=== PATIENT | female | born 1955 | race Caucasian/White ===

== ENCOUNTER 2018-07-12 09:27 | Day surgery (SDC) | payer OTHER ==
[~2018-07-12 09:27] MED LIST: Ak-Dilate OPHTHALMIC*** 1.065 ML, Cyclogyl 1% OPHTH SOL 5 ML 1.065 ML, GATIFLOXACIN 0.5... OP ONE; Lactated Ringers 1,000 ML IV ONE; Lactated Ringers 1,000 ML IV SCH; TETRACAINE 0.5% STERI-UNIT SOL OP ONE
[2018-07-12] MEDS ORDERED: INDIGO CARMINE IJ ONE (09:28)
[2018-07-12] MEDS ORDERED: Versed 2 MG/2 ML Injection IV ONE (09:28)
[2018-07-12] MEDS ORDERED: DIPRIVAN 200 MG/20 ML IV ONE (09:28)
[2018-07-12] MEDS ORDERED: Visionblue IO ONE (11:30)
[2018-07-12] MEDS ORDERED: LIDOCAINE HCL 1% AMPUL 5 ML IJ ONE (11:30)
[2018-07-12] MEDS ORDERED: BETADINE 5% OPHTHALMIC 30 ML OP ONE (11:30)
[2018-07-12] MEDS ORDERED: Epinephrine Preservative Free 1 MG/ML INTRAOP ONE (11:30)
[2018-07-12] MEDS ORDERED: ACETAZOLAMIDE 250 MG TABLET PO ONE (11:30)
[2018-07-12] MEDS ORDERED: Zofran 4 MG/2 ML VIAL IV PRN (11:30)
[2018-07-12] MEDS ORDERED: BSS 500 ML, Fortaz/Tazicef 1 GM** 0.2 G IO ONE ×2 (11:30)
[2018-07-12 12:19] VITALS: BP 171/85; PULSE 47; O2SAT 100
--- NOTE | 2018-07-12 14:44 | OP ---
DATE/TIME OF OPERATION: 07/12/2018 1056 TIME DICTATED: 1208 PREOPERATIVE DIAGNOSIS: Senile cataract of left eye. POSTOPERATIVE DIAGNOSIS: Senile cataract of left eye. SURGEON: Afsaneh Rosario MD CLAIM TRAINEE: None. OPERATION: Cataract extraction of left eye with an intraocular lens implant. STANDARD COMPLEX ___X___ ANESTHESIA: MAC. ___X___ Monitored anesthesia care in combination with topical and intra-cameral anesthesia (because of the established specific risk of reflux, arrhythmias, or an anxiety attack associated with ocular manipulation as well as difficulty of the nuclear control room operator to manage such potentially catastrophic events while simultaneously attempting to complete the surgical procedure, it was deemed necessary for the patient's safety to have an anesthesiologist or a nurse demo coordinator present during the procedure whenever possible. The anesthesiologist or the nurse demo coordinator was utilized to monitor and regulate the intravenous sedation of the patient, so the patient was cooperative, relaxed, and comfortable). Topical anesthesia using Tetracaine eye drops together with intra cameral anesthesia using Lidocaine 1% MPF. The nurse was utilized to monitor the patient. ANESTHESIA PROVIDER: Sanya Inman CRNA. COMPLICATIONS: None. BLOOD LOSS: None. INDICATIONS: The patient is undergoing cataract surgery in the hopes of eliminating the visual complaints and difficulty. PROCEDURE: After arriving at the facility's outpatient surgery area, an IV was started; the patient was given 5 mg of p.o. Versed. (If an anesthesia provider was not monitoring the patient) The patient was then given topical anesthetic Tetracaine eye drops. A cotton pellet was soaked into a solution of a combination of Zymaxid 0.5%, Da-Synephrine 2.5% and Ocufen (other drops might have been substituted referenced in the patient's record). The pellet was inserted by the RN into the lower conjunctival cul-de-sac with a sterile forceps and left for 20 minutes. The pellet was then removed by the RN with a sterile forceps before taking the patient to the operating room. The preoperative area nurse identified the patient and marked the correct eye to be operated on. I identified the correct eye to be operated on and marked it appropriately in the outpatient surgery area. The patient was then taken into the operating room. Tetracaine eye drops were installed again in the correct eye. The eyelids and the lashes and the lid margins were scrubbed with Betadine solution. One drop of the diluted Betadine solution was placed in the conjunctival cul-de-sac for 45 seconds and then was irrigated. A drop of Tetracaine Gel was placed in the conjunctival cul-de-sac. The patient's forehead was taped to secure it during the procedure. The patient was monitored. The patient was then draped in the usual way for this procedure. An eye speculum was used to separate the eyelids. The eye was then fixated and a temporal 2.5 mm incision was made in the clear cornea temporally at the limbus. Through the incision, 0.25 cc of 1% non-preserved lidocaine was injected into the anterior chamber for intracameral anesthesia. The anterior chamber was then filled with viscoelastic. The pupil was small. I felt that it would be safer to mechanically dilate the pupil. A Malyugin ring was used at this point which dilated the pupil. That was removed at the end of the procedure prior to aspiration of the viscoelastic from the anterior chamber and posterior to the intraocular lens implant. ___X__ The cataract had a great amount of cortical changes. That rendered seeing the anterior capsule difficult for a safe performance of an anterior capsulotomy. I injected an air bubble into the anterior chamber. I then injected 1 ML of vision blue solution into the anterior chamber. The vision blue solution was irrigated from the anterior chamber after 30 seconds. The anterior capsule was stained which facilitated performing the anterior capsulotomy safely. After that was completed, a cystotome was introduced into the anterior chamber and a round anterior capsulotomy was performed. The capsule was removed by a forceps. Hydrodissection was next carried utilizing a 25-gauge cannula and balanced salt solution to delineate the cortical material from the capsule and the nucleus from the cortical material. The nucleus was rotated freely into the capsular bag with no difficulty. The phaco tip of the [facility] Phacoemulsifier was introduced into the anterior chamber and two grooves were made into the nucleus 90 degrees apart. Using two spatulas resulted into the nucleus being fractured into four quadrants. The phaco tip was then used to remove each quadrant of the nucleus. Viscoelastic was used during this process to protect the corneal endothelium. Once the entire nucleus was removed, the phaco tip then was removed and the irrigation tip was introduced into the eye and the cortex was removed. The posterior capsule was polished. It was noticed that there was a tear into the posterior capsule with few vitreous strands into the pupil plan. An anterior vitrectomy was performed. A 18.00 diopter, [id number], posterior chamber lens implant, was inspected and found to be grossly normal. The implant was inserted into the implant injector cartridge; Viscoelastic again was introduced into the anterior chamber, which filled the capsular bag. The implant injector's cartridge tip was placed at the limbal wound and the posterior chamber implant was released into the capsular bag and rotated appropriately. The implant was found to be into the capsular bag and it was centered. __X___ 0.2 ml of Tri-Moxi was introduced via 27 gauge cannula into the vitreous cavity through the ciliary processes. Viscoelastic was aspirated from the anterior chamber and posterior to the intraocular lens implant from the capsular bag using the irrigating tip. The anterior chamber was irrigated and filled with 5 cc antibiotic solution (500 cc of BSS plus 2 ml of Fortaz 100 mg/ml) ( if patient was not allergic to the medication). The lips of the corneal incision were hydrated using BSS solution. The anterior chamber was checked and found to be water tight. One drop each of antibiotic, steroid and NSAID drops (refer to chart for drops used) were placed in the conjunctival cul-de-sac of the operated eye. Patient tolerated the procedure quite well and left the operating room in satisfactory condition. DISCHARGE SUMMARY: The patient was released in stable condition. The patient and those with the patient were given an instruction sheet as of how to care for the eye after surgery as well as counseling on any abnormal laboratory studies by the postoperative RN. The patient was also given an appointment card for follow-up in the office and is to call immediately for any difficulties including but not limited to pain in the eye, decreased vision, discharge from the eye, headache and or fever. DISCHARGE DIAGNOSIS: Pseudophakia of left eye.
== END 2018-07-12 12:27 | disposition home or self-care (01) ==
LOC: SDC 09:27
PROVIDERS: ATTEND Ophthalmology
DX: H25.9 Unspecified age-related cataract (principal)
CPT/HCPCS: 66982; 94250; C1780; J0171; J2250; J2704; A9270-GY

== ENCOUNTER 2022-02-10 08:27 | Day surgery (SDC) | payer MEDICARE ==
[~2022-02-10 08:27] MED LIST changes: +ACETAZOLAMIDE 250 MG TABLET PO ONE; +Ak-Dilate OPHTHALMIC*** 1.065 ML, Cyclogyl 1% OPHTH SOL 1.065 ML, GATIFLOXACIN 0.5% OPH... OP ONE; -Ak-Dilate OPHTHALMIC*** 1.065 ML, Cyclogyl 1% OPHTH SOL 5 ML 1.065 ML, GATIFLOXACIN 0.5... OP ONE; +BETADINE 5% OPHTHALMIC 30 ML OP ONE; -Lactated Ringers 1,000 ML IV ONE; +NON-FORMULARY ITEM IJ ONE; +Zofran 4 MG/2 ML VIAL IV PRN; +cefUROXime sodium 0.005 GM in Sodium Chloride Flush 30 ML*** 0.5 ML IJ ONE
[2022-02-10] MEDS ORDERED: LIDOCAINE HCL 1% 50 MG/5 ML VL PF IJ ONE (08:28)
[2022-02-10] MEDS ORDERED: Epinephrine Preservative Free 1 MG/ML IJ ONE (08:28)
[2022-02-10] MEDS ORDERED: Lactated Ringers 1,000 ML IV SCH (08:30)
[2022-02-10] MEDS ORDERED: BETADINE 5% OPHTHALMIC 30 ML OP ONE (08:30)
[2022-02-10] MEDS ORDERED: Ak-Dilate OPHTHALMIC*** 1.065 ML, Cyclogyl 1% OPHTH SOL 1.065 ML, GATIFLOXACIN 0.5% OPH... OP ONE ×4 (08:30)
[2022-02-10] MEDS ORDERED: NON-FORMULARY ITEM IJ ONE (08:30)
[2022-02-10] MEDS ORDERED: cefUROXime sodium 0.005 GM in Sodium Chloride Flush 30 ML*** 0.5 ML IJ ONE (08:30)
[2022-02-10] MEDS ORDERED: TETRACAINE 0.5% STERI-UNIT SOL OP ONE ×2 (08:30)
[2022-02-10] MEDS ORDERED: Lactated Ringers 1,000 ML IV ONE (09:05)
[2022-02-10] MEDS ORDERED: DIPRIVAN 200 MG/20 ML IV ONE ×2 (10:16→10:28)
[2022-02-10] MEDS ORDERED: SUBLIMAZE 100 MCG/2 ML ONE (10:30)
[2022-02-10] MEDS ORDERED: ACETAZOLAMIDE 250 MG TABLET PO ONE (10:30)
[2022-02-10] MEDS ORDERED: Zofran 4 MG/2 ML VIAL IV PRN (10:30)
[2022-02-10 11:06] VITALS: O2SAT 100
[2022-02-10 11:15] VITALS: BP 136/62; PULSE 52
== END 2022-02-10 11:17 | disposition home or self-care (01) ==
LOC: SDC 08:27
PROVIDERS: ATTEND Ophthalmology
DX: H25.811 Combined forms of age-related cataract, right eye (principal)
CPT/HCPCS: C1780; J0171; J2001; J2704; J3010; A9270-GY

== ENCOUNTER 2024-02-23 10:31 | Emergency (ER) | payer MEDICARE ==
--- NOTE | 2024-02-23 10:32 | ERPHSYRPT ---
- History of Present Illness Time Seen by Provider: 02/23/24 10:32 Source: patient, family Exam Limitations: no limitations Physician History: This is a 68-year-old white female patient of nurse practitioner Ivette who was seen at the urgent care facility this morning. This patient have the complaint of "just not feeling well over the last 2 to 3 weeks". Patient had a COVID and flu test today that was negative. She also underwent a twelve-lead EKG which did not show any acute ischemic findings. Patient states that she feels weak. She does have some discomfort between her scapulae. She has no abdominal pain. She has no specific chest pain. She does have generalized achiness. There is been no recent change in her medications. Although 4 weeks ago she stopped taking a medicine for her arthritis that she was prescribed. Patient was diagnosed with shingles 3 weeks ago. Patient denies chest pain and she denies shortness of breath. Patient has a history of hypothyroidism, anxiety, depression and rheumatoid arthritis. She has a history of DVT and pulmonary embolus in the past and reviewing old records. In reviewing her medication list I do not see anticoagulation medication. Patient has never been diagnosed with coronary artery disease. Timing/Duration: week(s) Severity: mild (2 to 3 weeks to moderate) Associated Symptoms: denies symptoms, malaise, weakness Allergies/Adverse Reactions: No Known Drug Allergies Allergy (Verified 02/23/24 10:46) Home Medications: Levothyroxine Sodium 125 mcg PO DAILY 09/20/13 [History] Sertraline HCl [Zoloft] 50 mg PO DAILY 07/06/18 [History] Leflunomide [Arava] 10 mg PO DAILY 07/07/18 [History] Acetaminophen [Tylenol] 650 mg PO DAILY PRN PRN 01/05/22 [History] Vit D3-Vit K/Berberine/Hops [Ostera Tablet] 1 each PO DAILY 02/04/22 [History] Hx Tetanus, Diphtheria Vaccination/Date Given: No Hx Influenza Vaccination/Date Given: Yes (June 2013) Hx Pneumococcal Vaccination/Date Given: No Travel Risk - International Travel Have you traveled outside of the country in past 3 weeks: No - Emerging Infectious Disease Are you exhibiting symptoms associated with any current EIDs: No - Review of Systems Constitutional: Malaise, Weakness Eyes: No Symptoms Ears, Nose, & Throat: No Symptoms Respiratory: No Symptoms Cardiac: No Symptoms Abdominal/Gastrointestinal: No Symptoms Genitourinary Symptoms: No Symptoms Musculoskeletal: No Symptoms Skin: No Symptoms Neurological: No Symptoms Psychological: No Symptoms Endocrine: No Symptoms Hematologic/Lymphatic: No Symptoms Immunological/Allergic: No Symptoms All Other Systems: Reviewed and Negative - Past Medical History Pertinent Past Medical History: Yes Neurological History: No Pertinent History ENT History: No Pertinent History Cardiac History: Deep Vein Thrombosis Respiratory History: No Pertinent History, Pulmonary Embolism Endocrine Medical History: Hypothyroidism Musculoskeletal History: Rheumatoid Arthritis GI Medical History: No Pertinent History History: No Pertinent History, Other Psycho-Social History: Anxiety, Depression Female Reproductive Disorders: No Pertinent History Other Medical History: kidney stones, blood clot in lung, pessory in place to hold uterus hx of uti - Past Surgical History Past Surgical History: Yes Neuro Surgical History: No Pertinent History Cardiac: No Pertinent History Respiratory: No Pertinent History Gastrointestinal: Cholecystectomy Genitourinary: No Pertinent History Musculoskeletal: No Pertinent History Female Surgical History: Tubal Ligation Other Surgical History: lithotripsy - Social History Smoking Status: Never smoker Exposure to second hand smoke: No Drug Use: none Patient Lives Alone: No - Nursing Vital Signs Nursing Vital Signs: Initial Vital Signs Temperature 97.2 F 02/23/24 10:48 Pulse Rate 89 02/23/24 10:48 Respiratory Rate 18 02/23/24 10:48 Blood Pressure 185/111 02/23/24 10:48 O2 Sat by Pulse Oximetry 97 02/23/24 10:48 Pain Scale Pain Intensity 0 - Physical Exam General Appearance: no apparent distress, alert, anxiety, obese Eye Exam: PERRL/EOMI, eyes nml inspection Ears, Nose, Throat Exam: normal ENT inspection, moist mucous membranes Neck Exam: normal inspection, non-tender, supple, full range of motion Respiratory Exam: normal breath sounds, lungs clear, airway intact, No chest tenderness, No respiratory distress Cardiovascular Exam: regular rate/rhythm, normal heart sounds, normal peripheral pulses Gastrointestinal/Abdomen Exam: soft, normal bowel sounds, No tenderness Pelvic Exam: not done Rectal Exam: not done Back Exam: normal inspection, normal range of motion, No CVA tenderness, No vertebral tenderness Extremity Exam: normal inspection, normal range of motion, pelvis stable Neurologic Exam: alert, oriented x 3, cooperative, developmental behavioral physician II-XII nml as tested, nml cerebellar function, nml station & gait, sensation nml, depressed mood/affect Skin Exam: normal color, warm, dry Lymphatic Exam: No adenopathy SpO2 Interpretation: normal O2 Delivery: Room Air - Course Nursing assessment & vital signs reviewed: Yes EKG Interpreted by Me: RATE (87), Sinus Rhythm, NORMAL AXIS, NORMAL INTERVALS, NORMAL QRS, Other (No acute ischemic changes on today's twelve-lead EKG. There is no comparison twelve-lead EKG available.) Ordered Tests: Active Orders 24 hr Category Date Time Status Property Damage Claims Adjustor STAT Care 02/23/24 11:11 Active IV Insertion STAT Care 02/23/24 11:10 Active Pulse Oximetry (ED) STAT Care 02/23/24 11:10 Active CHEST 1 VIEW (PORTABLE) Stat Exams 02/23/24 11:10 Completed CHEST WITH CONTRAST [CT] Stat Exams 02/23/24 12:21 Completed BLOOD CULTURE Stat Lab 02/23/24 12:15 Received CBC W DIFF Stat Lab 02/23/24 11:20 Completed CMP Stat Lab 02/23/24 11:20 Completed CULTURE,URINE Stat Lab 02/23/24 12:05 Received D-DIMER QUANTITATIVE Stat Lab 02/23/24 11:20 Completed MAGNESIUM Stat Lab 02/23/24 11:20 Completed NT PRO BNPII Stat Lab 02/23/24 11:20 Completed TROPONIN Q4H Lab 02/23/24 15:15 Ordered TROPONIN Q4H Lab 02/23/24 19:15 Ordered TSH, 3RD Generation Stat Lab 02/23/24 11:20 Completed UA W/RFX UR CULTURE Stat Lab 02/23/24 12:05 Completed Medication Summary Discontinued Medications Generic Name Dose Route Start Last Admin Trade Name Niecy PRN Reason Stop Dose Admin Sodium Chloride 1,000 mls @ 999 mls/hr 02/23/24 11:10 02/23/24 12:16 Sodium Chloride 0.9% 1000 Ml IV 02/23/24 12:10 999 mls/hr .Q1H1M STA Administration Sodium Chloride Confirm 02/23/24 11:28 Sodium Chloride 0.9% 1000 Ml Administered 02/23/24 11:29 Dose 1,000 mls @ ud .ROUTE .STK-MED ONE Ceftriaxone Sodium 1 gm in 100 mls @ 200 mls/hr 02/23/24 12:34 02/23/24 12:53 Rocephin 1 Gm / 100 Ml Nacl IV 02/23/24 13:03 200 ml/hr STAT ONE 200 mls/hr Administration Ceftriaxone Sodium Confirm 02/23/24 12:49 Rocephin 1 Gm / 100 Ml Nacl Administered 02/23/24 12:50 Dose 1 gm in 100 mls @ ud IV .STK-MED ONE Labetalol HCl 10 mg 02/23/24 11:37 02/23/24 12:18 Labetalol Hcl 20 Mg/4 Ml Disp.Syringe IV 02/23/24 11:38 10 mg STAT ONE Administration Labetalol HCl Confirm 02/23/24 12:10 Labetalol Hcl 20 Mg/4 Ml Disp.Syringe Administered 02/23/24 12:11 Dose 20 mg IV .STK-MED ONE Labetalol HCl 10 mg 02/23/24 13:24 02/23/24 13:47 Labetalol Hcl 20 Mg/4 Ml Disp.Syringe IV 02/23/24 13:25 10 mg STAT ONE Administration Labetalol HCl Confirm 02/23/24 13:35 Labetalol Hcl 20 Mg/4 Ml Disp.Syringe Administered 02/23/24 13:36 Dose 20 mg IV .STK-MED ONE Potassium Chloride 20 meq 02/23/24 13:50 02/23/24 13:54 Potassium Chloride Tab 10 Meq Tab PO 02/23/24 13:51 20 meq STAT ONE Administration Potassium Chloride Confirm 02/23/24 13:53 Potassium Chloride Tab 10 Meq Tab Administered 02/23/24 13:54 Dose 20 meq .ROUTE .STK-MED ONE Lab/Rad Data: Laboratory Result Diagrams 02/23/24 11:20 02/23/24 11:20 Laboratory Results 02/23/24 02/23/24 02/23/24 Range/Units 12:05 11:20 11:20 WBC (3.98-10.04) x10^3/uL RBC (3.93-5.22) x10^6/uL Hgb (11.2-15.7) g/dL Hct (34.1-44.9) % MCV (79.4-94.8) fL MCH (25.6-32.2) pg MCHC (32.2-35.5) g/dL RDW (11.7-14.4) % Plt Count (182-369) x10^3/uL MPV (9.4-12.3) fL Gran % (34.0-71.1) % Immature Gran % (Auto) (0.001-0.429) % Nucleat RBC Rel Count (0.00-0.2) % Eos # (Auto) (0.04-0.36) x10^3/uL Immature Gran # (Auto) (0.001-0.031) x10^3u/L Absolute Lymphs (auto) (1.18-3.74) x10^3/uL Absolute Monos (auto) (0.24-0.86) x10^3/uL Absolute Nucleated RBC (0.00-0.012) x10^3u/L Lymphocytes % (19.3-51.7) % Monocytes % (4.7-12.5) % Eosinophils % (0.7-5.8) % Basophils % (0.1-1.2) % Absolute Granulocytes (1.56-6.13) x10^3/uL Basophils # (0.01-0.08) x10^3/uL D-Dimer 0.69 H* (0.0-0.50) mg/L Sodium (135-145) mmol/L Sodium Direct 139 (138-146) mmol/L Potassium 3.3 L (3.5-5.1) mmol/L Chloride 100 (98-107) mmol/L Carbon Dioxide 29 (22-30) mmol/L Anion Gap (5-15) MEQ/L BUN (7-17) mg/dL Venous BUN 5 L (8-26) mg/dL Creatinine 0.7 (0.52-1.04) mg/dL Estimated GFR ML/MIN Glucose 98 (74-106) mg/dL Calcium (8.4-10.2) mg/dL Ionized Calcium 0.88 L (1.12-1.32) mmol/L Magnesium (1.6-2.3) mg/dL Total Bilirubin (0.2-1.3) mg/dL AST (14-36) U/L ALT (0-35) U/L Alkaline Phosphatase (38-126) U/L Troponin 0.01 (0.00-0.03) ng/mL NT-Pro-B Natriuret Pep (<300) pg/mL Serum Total Protein (6.3-8.2) g/dL Albumin (3.5-5.0) g/dL TSH 3rd Generation (0.470-4.680) mIU/L Urine Color Yellow (Yellow) Urine Appearance Clear (Clear) Urine pH 6.5 (4.6-8.0) Ur Specific Custer 1.015 (1.005-1.030) Urine Protein Trace A (Negative) Urine Glucose (UA) Negative (Negative) mg/dL Urine Ketones 40 A (Negative) Urine Blood Negative (Negative) Urine Nitrite Negative (Negative) Urine Bilirubin Negative (Negative) Urine Urobilinogen 1.0 A (0.2) mg/dL Ur Leukocyte Esterase Large A (Negative) U Hyaline Cast (Auto) NONE SEEN (0-2) /LPF Urine Microscopic RBC 0-2 (0-5) /HPF Urine Microscopic WBC 21-50 A (0-5) /HPF Ur Epithelial Cells Few (None Seen) /HPF Urine Bacteria Few A (None Seen) /HPF Urine Culture Reflexed YES (NO) 02/23/24 02/23/24 Range/Units 11:20 11:20 WBC 3.3 L (3.98-10.04) x10^3/uL RBC 4.40 (3.93-5.22) x10^6/uL Hgb 13.0 (11.2-15.7) g/dL Hct 39.1 (34.1-44.9) % MCV 88.9 (79.4-94.8) fL MCH 29.5 (25.6-32.2) pg MCHC 33.2 (32.2-35.5) g/dL RDW 13.9 (11.7-14.4) % Plt Count 219 (182-369) x10^3/uL MPV 10.9 (9.4-12.3) fL Gran % 70.9 (34.0-71.1) % Immature Gran % (Auto) 0.3 (0.001-0.429) % Nucleat RBC Rel Count 0.0 (0.00-0.2) % Eos # (Auto) 0.02 L (0.04-0.36) x10^3/uL Immature Gran # (Auto) 0.01 (0.001-0.031) x10^3u/L Absolute Lymphs (auto) 0.60 L (1.18-3.74) x10^3/uL Absolute Monos (auto) 0.28 (0.24-0.86) x10^3/uL Absolute Nucleated RBC 0.00 (0.00-0.012) x10^3u/L Lymphocytes % 18.4 L (19.3-51.7) % Monocytes % 8.6 (4.7-12.5) % Eosinophils % 0.6 L (0.7-5.8) % Basophils % 1.2 (0.1-1.2) % Absolute Granulocytes 2.31 (1.56-6.13) x10^3/uL Basophils # 0.04 (0.01-0.08) x10^3/uL D-Dimer (0.0-0.50) mg/L Sodium 140 (135-145) mmol/L Sodium Direct (138-146) mmol/L Potassium 3.3 L (3.5-5.1) mmol/L Chloride 103 (98-107) mmol/L Carbon Dioxide 30 (22-30) mmol/L Anion Gap 10.2 (5-15) MEQ/L BUN 7 (7-17) mg/dL Venous BUN (8-26) mg/dL Creatinine 0.63 (0.52-1.04) mg/dL Estimated GFR 95.4 ML/MIN Glucose 102 (74-106) mg/dL Calcium 8.9 (8.4-10.2) mg/dL Ionized Calcium (1.12-1.32) mmol/L Magnesium 1.8 (1.6-2.3) mg/dL Total Bilirubin 0.60 (0.2-1.3) mg/dL AST 25 (14-36) U/L ALT 13 (0-35) U/L Alkaline Phosphatase 89 (38-126) U/L Troponin (0.00-0.03) ng/mL NT-Pro-B Natriuret Pep 342 (<300) pg/mL Serum Total Protein 7.0 (6.3-8.2) g/dL Albumin 3.7 (3.5-5.0) g/dL TSH 3rd Generation 0.334 L (0.470-4.680) mIU/L Urine Color (Yellow) Urine Appearance (Clear) Urine pH (4.6-8.0) Ur Specific Custer (1.005-1.030) Urine Protein (Negative) Urine Glucose (UA) (Negative) mg/dL Urine Ketones (Negative) Urine Blood (Negative) Urine Nitrite (Negative) Urine Bilirubin (Negative) Urine Urobilinogen (0.2) mg/dL Ur Leukocyte Esterase (Negative) U Hyaline Cast (Auto) (0-2) /LPF Urine Microscopic RBC (0-5) /HPF Urine Microscopic WBC (0-5) /HPF Ur Epithelial Cells (None Seen) /HPF Urine Bacteria (None Seen) /HPF Urine Culture Reflexed (NO) - Progress Progress: improved Progress Note: 02/23/24 11:26 My medical decision making and the assignment of moderate complexity to this patient's workup today is based on review of the patient's past medical history, review of the patient's medication list, review the patient drug allergy list, history present illness and physical findings on examination. The workup in this patient includes placement of intravenous line, urinalysis, CBC, CMP, infusion of normal saline solution, thyroid function test, twelve-lead EKG, troponin level, BNP, D-dimer test and magnesium. The patient presents to us already having had negative COVID and negative flu testing. The twelve-lead EKG that was done within 15 to 30 minutes prior to arrival will suffice for the initial twelve-lead EKG. Differential diagnosis includes but is not limited to abnormal thyroid function test, urinary tract infection, electrolyte abnormalities, dysrhythmia, myocardial infarction, CHF, depression 02/23/24 12:18 Chest x-ray was interpreted by the radiologist and I reviewed the impression. Impression states no new or acute findings. 02/23/24 14:[address] scan of the chest with contrast was interpreted by the radiologist and I reviewed the impression. The impression states negative pulmonary embolus. No acute cardiopulmonary abnormalities. I interpreted the patient's laboratory data results. Patient has a slightly low potassium of 3.3. We provided her with a single dose of potassium chloride 20 mEq. She also has a significant urinary tract infection. We provided her with a dose of Rocephin intravenously and will send a prescription to her pharmacy for cefdinir. Counseled pt/family regarding: lab results, diagnosis, need for follow-up Medical Desision Making - Independent Historian Additional History obtained from: Spouse - Diagnostic Testing Diagnostic test were ordered, analyzed, and reviewed by me: Yes Radiological Interpretation: Reviewed by me, Teleradiologist Report - Risk of complications The pt has a mod risk of morbidity or mortality based on: Need for prescription drug management - Departure Departure Disposition: Home Clinical Impression: Hypertension, Urinary tract infection, Hypokalemia Condition: Stable Critical Care Time: No Referrals: JS YI NP [Primary Care Provider] - Follow up/PCP as directed Additional Instructions: Drink plenty of fluids. Take your medication as prescribed. Follow-up with your primary care provider at scheduled appointment date and time. Keep a 3 times a day log of your blood pressure readings. Provide this to your primary care provider at your scheduled appointment. Prescriptions: Cefdinir 300 mg PO BID #14 cap
[2024-02-23 10:49] VITALS: TEMP 97.2
[2024-02-23] MEDS ORDERED: Sodium Chloride 0.9% 1000 ML 1,000 ML ONE (11:28)
[2024-02-23 11:41] LABS: Absolute Neutrophil Ct (ANC) 2.31 x10^3/uL (1.56-6.13); BASOPHIL % 1.2 % (0.1-1.2); Basophil (Absolute #) 0.04 x10^3/uL (0.01-0.08); Eosinophil % 0.6 % (0.7-5.8); Eosinophil (Absolute #) 0.02 x10^3/uL (0.04-0.36); Hematocrit 39.1 % (34.1-44.9); IMMATURE GRAN # 0.01 x10^3u/L (0.001-0.031); IMMATURE GRAN % 0.3 % (0.001-0.429); Lymphocytes % 18.4 % (19.3-51.7); Mean Cell Volume 88.9 fL (79.4-94.8); Mean Corpuscular Hemoglobin 29.5 pg (25.6-32.2); Mean Corpuscular Hgb Concent. 33.2 g/dL (32.2-35.5); Mean Platelet Volume 10.9 fL (9.4-12.3); Monocyte (Absolute #) 0.28 x10^3/uL (0.24-0.86); Monocytes % 8.6 % (4.7-12.5); Neutrophil % 70.9 % (34.0-71.1); Platelet Count 219 x10^3/uL (182-369); Red Cell Distribution Width 13.9 % (11.7-14.4); White Blood Count 3.3 x10^3/uL (3.98-10.04)
[2024-02-23 11:57] LABS: ISTAT CREA 0.7 mg/dL (0.6-1.3); ISTAT K 3.3 mmol/L (3.5-4.9); ISTAT iCA 0.88 mmol/L (1.12-1.32)
[2024-02-23 12:10] LABS: ISTAT cTNI 0.01 ng/mL (0.00-0.03)
[2024-02-23] MEDS ORDERED: TRANDATE 20 MG/4 ML SYRINGE IV ONE ×3 (12:10→14:33)
--- NOTE | 2024-02-23 12:10 | XRAY ---
Indication: Weakness and pain. Comparison: April 25, 2008 Portable chest remains inflated and clear with incidental right apical calcified granuloma. Heart not enlarged. Bony thorax intact again with moderate double curvature scoliosis. No new/acute findings.
[2024-02-23] MEDS: Sodium Chloride 0.9% 1000 ML 1,000 ML IV STA (12:16)
[2024-02-23] MEDS: TRANDATE 20 MG/4 ML SYRINGE IV ONE ×3 (12:18→14:35)
[2024-02-23 12:20] LABS: Appearance Clear (Clear); Bacteria Few /HPF (None Seen); Bilirubin Negative (Negative); Blood Negative (Negative); Epithelial Cells Few /HPF (None Seen); Glucose, Urine Negative (Negative); Hyaline Casts NONE SEEN /LPF (0-2); Ketones 40 (Negative); Leukocyte Esterase Large (Negative); Nitrite Negative (Negative); Ph 6.5 (4.6-8.0); Protein,Urine Dip Trace (Negative); RBC 0-2 /HPF (0-5); Specific Gravity 1.015 (1.005-1.030); WBC 21-50 /HPF (0-5)
[2024-02-23 12:21] LABS: ADD URINE CULTURE? YES (NO)
[2024-02-23] MEDS ORDERED: ROCEPHIN 1 GM / 100 ML NaCl 1 GM/100 ML IVPB IV ONE (12:49)
[2024-02-23] MEDS: ROCEPHIN 1 GM / 100 ML NaCl 1 GM/100 ML IVPB IV ONE (12:53)
[2024-02-23] MEDS ORDERED: Klor Con ONE (13:53)
[2024-02-23] MEDS: Klor Con PO ONE (13:54)
[2024-02-23 14:09] LABS: ALBUMIN 3.7 g/dL (3.5-5.0); ANION GAP 10.2 MEQ/L (5-15); BILIRUBIN,TOTAL 0.6 mg/dL (0.2-1.3); Calcium 8.9 mg/dL (8.4-10.2); Creatinine 1 0.63 mg/dL (0.52-1.04); EST GLOMERULAR FILTRATION RATE 95.4 ML/MIN; MAGNESIUM 1.8 mg/dL (1.6-2.3); Potassium 3.3 mmol/L (3.5-5.1); TSH, 3RD Generation 0.334 mIU/L (0.470-4.680)
--- NOTE | 2024-02-23 14:13 | XRAY ---
Indication: Back pain. Elevated d-dimer. Multiple contiguous axial images obtained through the chest using 80 cc Isovue 370 contrast and PE protocol. Comparison: None Good opacification of the pulmonary arteries to include the lobar and segmental branches. No pulmonary embolus. Heart not enlarged. Aorta minimally atherosclerotic without aneurysm/dissection. Small paratracheal and tiny mediastinal/right hilar calcified nodes. No pathologic mediastinal/hilar lymphadenopathy. Small hiatal hernia. Lungs demonstrate minimal bibasilar subsegmental atelectasis/scarring. No suspicious pulmonary mass/nodule, infiltrate, effusion, or pneumothorax. Bony thorax intact with osteopenia, moderate double curvature thoracolumbar scoliosis, and mild degenerative changes throughout the spine. Limited upper abdomen demonstrates 2.2 cm right lobe hepatic cyst near the dome of the diaphragm and incidental cholecystectomy clips. Impression: 1. Negative pulmonary embolus. No acute cardiopulmonary abnormalities. 2. Chronic findings including hiatal hernia, arteriosclerotic disease, hepatic cyst, chronic bony findings, and old granulomatous disease.
[2024-02-23 14:46] VITALS: BP 157/86; PULSE 64; RESP 20; O2SAT 95
== END 2024-02-23 15:27 | disposition home or self-care (01) ==
LOC: ED 10:31
DX: I10 Essential (primary) hypertension (principal); N39.0 Urinary tract infection, site not specified; E87.6 Hypokalemia; R53.1 Weakness; M79.10 Myalgia, unspecified site; Z79.899 Other long term (current) drug therapy; Z86.718 Personal history of other venous thrombosis and embolism
CPT/HCPCS: 36000; 36415; 71045; 71260; 80047; 80053; 81001; 83735; 83880; 84439; 84443; 84484; 85025; 85379; 87040; 87077; 87086; 87186; 93041; 94760; 96360; 96365; 96374; 96376; 99285; J0696; A9270-GY

== ENCOUNTER 2024-03-09 10:11 | Emergency (ER) | payer MEDICARE ==
[2024-03-09] MEDS: Zofran 4 MG/2 ML VIAL IV ONE (11:23)
[2024-03-09] MEDS ORDERED: Sodium Chloride 0.9% 1000 ML 1,000 ML ONE (11:23)
[2024-03-09] MEDS ORDERED: Zofran 4 MG/2 ML VIAL ONE (11:23)
[2024-03-09 11:24] LABS: Hemoglobin 13.2 g/dL (11.2-15.7); Mean Corpuscular Hemoglobin 29.8 pg (25.6-32.2); Mean Corpuscular Hgb Concent. 33.8 g/dL (32.2-35.5); Mean Platelet Volume 10.2 fL (9.4-12.3); Platelet Count 227 x10^3/uL (182-369); Red Blood Count 4.43 x10^6/uL (3.93-5.22); Red Cell Distribution Width 13.9 % (11.7-14.4); White Blood Count 3.9 x10^3/uL (3.98-10.04)
[2024-03-09] MEDS: Sodium Chloride 0.9% 1000 ML 1,000 ML IV STA (11:24)
[2024-03-09 11:39] LABS: ALBUMIN 3.6 g/dL (3.5-5.0); ANION GAP 9.6 MEQ/L (5-15); BILIRUBIN,TOTAL 0.6 mg/dL (0.2-1.3); Calcium 8.8 mg/dL (8.4-10.2); Creatinine 1 0.74 mg/dL (0.52-1.04); Potassium 3.3 mmol/L (3.5-5.1); Total Protein 6.7 g/dL (6.3-8.2)
--- NOTE | 2024-03-09 12:04 | XRAY ---
Indication: Lower abdominal pain and nausea. Multiple contiguous axial images obtained through the abdomen and pelvis without contrast. Comparison: October 05, 2013 Lung bases again demonstrates minimal right greater subsegmental atelectasis/scarring and tiny calcified granuloma. No infiltrate or effusion. Heart not enlarged. Noncontrasted stomach and bowel loops are nonobstructed. Again tiny hepatic/splenic calcified granulomas, sigmoid diverticulosis, appendectomy, cholecystectomy, and pelvic floor pessary device. Right lobe liver demonstrates enlarging 2.1 cm cyst, previously 1.1 cm. No free fluid/air. Remaining liver, pancreas, spleen, adrenal glands, kidneys, ureters, bladder, uterus, and aorta are unremarkable for noncontrast exam. Osseous structures intact again with osteopenia, moderate degenerative changes throughout spine, marked levorotoscoliosis, and moderate degenerative changes both hips. Impression: Again chronic findings including sigmoid diverticulosis, hepatic cyst, chronic bony findings, and old granulomatous disease. No new/acute findings on this noncontrast exam.
[2024-03-09 12:06] VITALS: BP 135/90; PULSE 72; RESP 15; O2SAT 96
[2024-03-09 13:37] LABS: Appearance Cloudy (Clear); Bacteria Few /HPF (None Seen); Bilirubin Negative (Negative); Blood Trace (Negative); Epithelial Cells Few /HPF (None Seen); Glucose, Urine Negative (Negative); Ketones 40 (Negative); Leukocyte Esterase Large (Negative); Nitrite Negative (Negative); Protein,Urine Dip Trace (Negative); RBC 0-2 /HPF (0-5); Specific Gravity 1.015 (1.005-1.030); Urobilinogen 0.2 mg/dL (0.2)
[2024-03-09 13:38] LABS: ADD URINE CULTURE? YES (NO)
[2024-03-09] MEDS ORDERED: ROCEPHIN 2 GM/100 ML NACL 2 GM/100 ML IVPB IV ONE (13:56)
[2024-03-09] MEDS: ROCEPHIN 2 GM/100 ML NACL 2 GM/100 ML IVPB IV ONE (13:58)
[2024-03-09] MEDS ORDERED: CLONIDINE 0.1 MG TABLET ONE (14:02)
[2024-03-09] MEDS: CLONIDINE 0.1 MG TABLET PO ONE (14:03)
--- NOTE | 2024-03-09 14:37 | ERPHSYRPT ---
- History of Present Illness Time Seen by Provider: 03/09/24 10:46 Historian: patient, family Exam Limitations: no limitations Patient Subjective Stated Complaint: Can't eat or drink, tired, "fuzzy feeling" Triage Nursing Assessment: 68 yr old female pt arrives to ED via POV with significant other. Pt is ambulatory to room 5. Pt presents with complaints of nausea, diarrhea and general not feeling well. Pt states that she has had shingles for 6 weeks and also blood pressure issues for a few weeks. Pt states that she just started lisinopril 1 week ago but doesn't believe it is working. Pt denies SOB, emesis and chest pain. Pt is alert, oriented and not in distress. Physician History: 68 years old female with history of hypertension, hypothyroidism, anxiety presented in the ER with complains of upper abdominal discomfort with nausea, loose stool and feeling of generalized weakness fatigue and tiredness. This has been going on for the last 6 weeks and progressively getting worse. Patient reports she has loss of appetite. Everything started after she was diagnosed with shingles. She has issues with her blood pressure medication as well and thinks that lisinopril is making her feel this way. She denies any chest pain palpitations or shortness of breath. No fever or chills reported. Allergies/Adverse Reactions: No Known Drug Allergies Allergy (Verified 03/09/24 10:51) Home Medications: Levothyroxine Sodium 112 mcg PO DAILY 09/20/13 [History] Sertraline HCl [Zoloft] 75 mg PO DAILY 07/06/18 [History] Leflunomide [Arava] 20 mg PO DAILY 07/07/18 [History] Acetaminophen [Tylenol] 650 mg PO DAILY PRN PRN 01/05/22 [History] Vit D3-Vit K/Berberine/Hops [Ostera Tablet] 1 each PO DAILY 02/04/22 [History] Ketorolac Trometh 10 mg Tab [TORAdol 10 MG TABLET] 10 mg PO Q6HPRN PRN 03/09/24 [History] Lisinopril 10 mg [Zestril 10 MG] 10 mg PO DAILY 03/09/24 [History] Hx Tetanus, Diphtheria Vaccination/Date Given: No Hx Influenza Vaccination/Date Given: No Hx Pneumococcal Vaccination/Date Given: No Immunizations Up to Date: No Travel Risk - International Travel Have you traveled outside of the country in past 3 weeks: No - Emerging Infectious Disease Are you exhibiting symptoms associated with any current EIDs: Yes Symptoms: Abdominal Pain, Diarrhea, Other (Please Comment) Comment: nausea - Review of Systems Constitutional: Fatigue, Weakness Eyes: No Symptoms Ears, Nose, & Throat: Mouth Pain Respiratory: No Symptoms Cardiac: No Symptoms Abdominal/Gastrointestinal: Abdominal Pain, Nausea, Diarrhea Genitourinary Symptoms: No Symptoms Musculoskeletal: Myalgias Skin: No Symptoms Neurological: No Symptoms Endocrine: No Symptoms Hematologic/Lymphatic: No Symptoms Immunological/Allergic: No Symptoms - Past Medical History Pertinent Past Medical History: Yes Neurological History: No Pertinent History ENT History: No Pertinent History Cardiac History: Deep Vein Thrombosis Respiratory History: No Pertinent History, Pulmonary Embolism Endocrine Medical History: Hypothyroidism Musculoskeletal History: Rheumatoid Arthritis GI Medical History: No Pertinent History History: No Pertinent History, Other Psycho-Social History: Anxiety, Depression Female Reproductive Disorders: No Pertinent History Other Medical History: kidney stones, blood clot in lung, pessory in place to hold uterus hx of uti - Past Surgical History Past Surgical History: Yes Neuro Surgical History: No Pertinent History Cardiac: No Pertinent History Respiratory: No Pertinent History Gastrointestinal: Cholecystectomy Genitourinary: No Pertinent History Musculoskeletal: No Pertinent History Female Surgical History: Tubal Ligation Other Surgical History: lithotripsy - Social History Smoking Status: Never smoker Exposure to second hand smoke: No Drug Use: none Patient Lives Alone: No - Social Determinants of Health Will the patient participate in the screening: Declined to provide - Nursing Vital Signs Nursing Vital Signs: Initial Vital Signs Pulse Rate 95 H 03/09/24 10:50 Respiratory Rate 16 03/09/24 10:50 Blood Pressure 150/105 03/09/24 10:50 O2 Sat by Pulse Oximetry 96 03/09/24 10:50 Pain Scale Pain Intensity 2 - Physical Exam General Appearance: no apparent distress, alert Eye Exam: PERRL/EOMI Ears, Nose, Throat Exam: TMs normal, pharynx normal, other (Sore spot on the right side of tongue) Respiratory Exam: normal breath sounds, lungs clear Cardiovascular Exam: regular rate/rhythm, normal heart sounds Gastrointestinal/Abdomen Exam: soft, normal bowel sounds, tenderness (Minimal epigastric area tenderness to deep palpation) Extremity Exam: normal inspection, normal range of motion Neurologic Exam: alert, oriented x 3, cooperative Skin Exam: normal color SpO2 Interpretation: normal SpO2: 96 O2 Delivery: Room Air Ordered Tests: Active Orders 24 hr Category Date Time Status Clean Catch Urine Specimen STAT Care 03/09/24 11:11 Active ABDOMEN AND PELVIS W/0 CONTRAS [CT] Stat Exams 03/09/24 11:11 Completed CBC Stat Lab 03/09/24 11:15 Completed CMP Stat Lab 03/09/24 11:15 Completed CULTURE,URINE Stat Lab 03/09/24 13:18 Received LIPASE Stat Lab 03/09/24 11:15 Completed Lactic Acid Stat Lab 03/09/24 11:15 Completed TSH [TSH, 3RD Generation] Stat Lab 03/09/24 11:15 Completed UA W/RFX UR CULTURE Stat Lab 03/09/24 13:18 Completed Medication Summary Discontinued Medications Generic Name Dose Route Start Last Admin Trade Name Yonathanq PRN Reason Stop Dose Admin Clonidine 0.2 mg 03/09/24 13:56 03/09/24 14:03 Clonidine Hcl 0.1 Mg Tablet PO 03/09/24 13:57 0.2 mg STAT ONE Administration Clonidine Confirm 03/09/24 14:02 Clonidine Hcl 0.1 Mg Tablet Administered 03/09/24 14:03 Dose 0.2 mg .ROUTE .STK-MED ONE Sodium Chloride 1,000 mls @ 999 mls/hr 03/09/24 11:13 03/09/24 12:31 Sodium Chloride 0.9% 1000 Ml IV 03/09/24 12:13 Infused .Q1H1M STA Infusion Sodium Chloride Confirm 03/09/24 11:23 Sodium Chloride 0.9% 1000 Ml Administered 03/09/24 11:24 Dose 1,000 mls @ ud .ROUTE .STK-MED ONE Ceftriaxone Sodium 2 gm in 100 mls @ 200 mls/hr 03/09/24 13:45 03/09/24 14:36 Rocephin 2 Gm/100 Ml Nacl IV 03/09/24 14:14 Infused STAT ONE Infusion Ceftriaxone Sodium Confirm 03/09/24 13:56 Rocephin 2 Gm/100 Ml Nacl Administered 03/09/24 13:57 Dose 2 gm in 100 mls @ ud IV .STK-MED ONE Ondansetron HCl 4 mg 03/09/24 11:11 03/09/24 11:23 Ondansetron Hcl 4 Mg/2 Ml Vial IV 03/09/24 11:12 4 mg STAT ONE Administration Ondansetron HCl Confirm 03/09/24 11:23 Ondansetron Hcl 4 Mg/2 Ml Vial Administered 03/09/24 11:24 Dose 4 mg .ROUTE .STK-MED ONE Lab/Rad Data: Laboratory Result Diagrams 03/09/24 11:15 03/09/24 11:15 Laboratory Results 03/09/24 03/09/24 03/09/24 Range/Units 13:18 11:15 11:15 WBC (3.98-10.04) x10^3/uL RBC (3.93-5.22) x10^6/uL Hgb (11.2-15.7) g/dL Hct (34.1-44.9) % MCV (79.4-94.8) fL MCH (25.6-32.2) pg MCHC (32.2-35.5) g/dL RDW (11.7-14.4) % Plt Count (182-369) x10^3/uL MPV (9.4-12.3) fL Sodium 138 (135-145) mmol/L Potassium 3.3 L (3.5-5.1) mmol/L Chloride 102 (98-107) mmol/L Carbon Dioxide 29 (22-30) mmol/L Anion Gap 9.6 (5-15) MEQ/L BUN 9 (7-17) mg/dL Creatinine 0.74 (0.52-1.04) mg/dL Estimated GFR 87.0 ML/MIN Glucose 102 (74-106) mg/dL Lactic Acid (0.4-2.0) Calcium 8.8 (8.4-10.2) mg/dL Total Bilirubin 0.60 (0.2-1.3) mg/dL AST 30 (14-36) U/L ALT 17 (0-35) U/L Alkaline Phosphatase 94 (38-126) U/L Serum Total Protein 6.7 (6.3-8.2) g/dL Albumin 3.6 (3.5-5.0) g/dL Lipase 62 (23-300) U/L TSH 3rd Generation 0.018 L (0.470-4.680) mIU/L Urine Color Yellow (Yellow) Urine Appearance Cloudy A (Clear) Urine pH 7.0 (4.6-8.0) Ur Specific [place] 1.015 (1.005-1.030) Urine Protein Trace A (Negative) Urine Glucose (UA) Negative (Negative) mg/dL Urine Ketones 40 A (Negative) Urine Blood Trace (Negative) Urine Nitrite Negative (Negative) Urine Bilirubin Negative (Negative) Urine Urobilinogen 0.2 (0.2) mg/dL Ur Leukocyte Esterase Large A (Negative) U Hyaline Cast (Auto) 3-5 A (0-2) /LPF Urine Microscopic RBC 0-2 (0-5) /HPF Urine Microscopic WBC 11-20 A (0-5) /HPF Ur Epithelial Cells Few (None Seen) /HPF Urine Bacteria Few A (None Seen) /HPF Urine Culture Reflexed YES (NO) 03/09/24 03/09/24 Range/Units 11:15 11:15 WBC 3.9 L (3.98-10.04) x10^3/uL RBC 4.43 (3.93-5.22) x10^6/uL Hgb 13.2 (11.2-15.7) g/dL Hct 39.0 (34.1-44.9) % MCV 88.0 (79.4-94.8) fL MCH 29.8 (25.6-32.2) pg MCHC 33.8 (32.2-35.5) g/dL RDW 13.9 (11.7-14.4) % Plt Count 227 (182-369) x10^3/uL MPV 10.2 (9.4-12.3) fL Sodium (135-145) mmol/L Potassium (3.5-5.1) mmol/L Chloride (98-107) mmol/L Carbon Dioxide (22-30) mmol/L Anion Gap (5-15) MEQ/L BUN (7-17) mg/dL Creatinine (0.52-1.04) mg/dL Estimated GFR ML/MIN Glucose (74-106) mg/dL Lactic Acid 1.4 (0.4-2.0) Calcium (8.4-10.2) mg/dL Total Bilirubin (0.2-1.3) mg/dL AST (14-36) U/L ALT (0-35) U/L Alkaline Phosphatase (38-126) U/L Serum Total Protein (6.3-8.2) g/dL Albumin (3.5-5.0) g/dL Lipase (23-300) U/L TSH 3rd Generation (0.470-4.680) mIU/L Urine Color (Yellow) Urine Appearance (Clear) Urine pH (4.6-8.0) Ur Specific [place] (1.005-1.030) Urine Protein (Negative) Urine Glucose (UA) (Negative) mg/dL Urine Ketones (Negative) Urine Blood (Negative) Urine Nitrite (Negative) Urine Bilirubin (Negative) Urine Urobilinogen (0.2) mg/dL Ur Leukocyte Esterase (Negative) U Hyaline Cast (Auto) (0-2) /LPF Urine Microscopic RBC (0-5) /HPF Urine Microscopic WBC (0-5) /HPF Ur Epithelial Cells (None Seen) /HPF Urine Bacteria (None Seen) /HPF Urine Culture Reflexed (NO) - Progress Progress: improved Progress Note: 03/09/24 14:43 68 years old is evaluated for upper abdominal discomfort with nausea and diarrhea along with generalized weakness fatigue and tiredness. Patient blood pressure is elevated and has not taken her dose of lisinopril as she was thin shanta this is probably the reason for her symptoms. She is given fluids and symptomatic treatment, on reevaluation she is feeling much better. Workup showed normal white count, fairly unremarkable chemistries but does have UTI, given a dose of Rocephin. Will continue with Keflex to go home. I have obtained CT abdomen pelvis without contrast which is negative for any acute intra-abdominal pelvic findings. Patient does have some epigastric pain which I believe patient possibly have GERD symptoms and would give her Protonix to go home and recommended taking Tylenol and avoiding NSAIDs. Given clonidine for blood pressure here and recommended to continue with lisinopril and discussed with her primary care about other options replacing lisinopril with losartan or some other medication. Patient has low TSH 0.018, which could also contribute to her symptoms, recommended decreasing dose of levothyroxine and discussion with her primary care/endocrinology for further evaluation and recheck. I do not think patient needs any further workup and is being discharged with outpatient follow-up. Patient does have shingle rash and is crusted on the left back. Discussed signs symptoms of worsening needing return to ER which patient seems understanding. Stable for discharge. Counseled pt/family regarding: lab results, diagnosis, need for follow-up, rad results Medical Desision Making - Independent Historian Additional History obtained from: Spouse - Diagnostic Testing Diagnostic test were ordered, analyzed, and reviewed by me: Yes Radiological Interpretation: Reviewed by me - Risk of complications The pt has a mod risk of morbidity or mortality based on: Need for prescription drug management - Departure Departure Disposition: Home Clinical Impression: Hypertension, Urinary tract infection, General weakness, Low TSH level Condition: Stable Critical Care Time: No Referrals: JS YI NP [Primary Care Provider] - Follow up with PCP 1 day Instructions: Fatigue (DC) Additional Instructions: Increase hydration. Take Tylenol as needed. Take Phenergan as needed for nausea. Monitor your blood pressure regularly, keep a log for follow-up with primary care for reevaluation. Return to ER for any worsening. Take levothyroxine 75 mcg and talk to your primary care/endocrinology about low level of TSH. Prescriptions: Promethazine HCl 25 mg [Phenergan 25 mg] 25 mg PO Q8H PRN PRN #10 tablet PRN Reason: Vomiting Cephalexin Mh 500 mg [Keflex 500 mg] 500 mg PO TID #21 cap PANTOPRAZOLE 40 mg Tablet [Protonix 40MG Tablet] 40 mg PO QAM #30 tab Levothyroxine Sodium 75 Mcg [Synthroid 75 Mcg] 75 mcg PO DAILY 30 Days #30 tablet
== END 2024-03-09 15:50 | disposition home or self-care (01) ==
LOC: ED 10:11
DX: I10 Essential (primary) hypertension (principal); N39.0 Urinary tract infection, site not specified; R53.1 Weakness; R94.6 Abnormal results of thyroid function studies; R11.0 Nausea; R19.7 Diarrhea, unspecified; Z79.899 Other long term (current) drug therapy
CPT/HCPCS: 36000; 36415; 74176; 80053; 81001; 83605; 83690; 84443; 85027; 87077; 87086; 87186; 96365; 96374; 99284; J0696; J2405; A9270-GY

== ENCOUNTER 2024-03-27 06:25 | Day surgery (SDC) | payer MEDICARE ==
[2024-03-27] MEDS: Lactated Ringers 1,000 ML IV SCH (07:12)
[2024-03-27] MEDS ORDERED: Versed 2 MG/2 ML Injection ONE (07:53)
[2024-03-27] MEDS ORDERED: DIPRIVAN 200 MG/20 ML IV ONE (07:53)
[2024-03-27] MEDS ORDERED: Xylocaine-Mpf 2% 5 Ml Vial ONE (07:53)
[2024-03-27 08:48] VITALS: TEMP 97.8
[2024-03-27 09:03] VITALS: BP 167/70; PULSE 60; RESP 16; O2SAT 97
--- NOTE | 2024-03-28 13:39 | OP ---
SURGERY DATE/TIME: 03/27/2024 0800 - 0811 PREOPERATIVE DIAGNOSIS: Weight loss and gastroesophageal reflux disease. POSTOPERATIVE DIAGNOSIS: Moderate gastritis. PROCEDURE: Esophagogastroduodenoscopy with cold forceps biopsy of the gastric antrum. SURGEON: Jaxson Genao MD. ANESTHESIA: Medications were given by the anesthesia department. INDICATIONS: The patient is a 68-year-old white female who reports she has been losing approximately 15 pounds over the past couple of months. She reports that she thinks that anxiety has a lot to do with it. Her had mentioned that he has been having some heart-related issues and reports that she thinks about this a lot. The patient was felt to need to have endoscopic evaluation. She was apprised of the risks of the procedure including the risk of perforation, phlebitis, untoward reaction to medication, bleeding, and missed lesions. The patient verbalized her understanding and desired to have the procedure performed. DESCRIPTION OF PROCEDURE AND FINDINGS: The patient was given medication by the anesthesia department. She had continuous pulse oximetry, ECG monitoring, and intermittent blood pressure monitoring. She was placed in the left lateral decubitus position. A bite block was placed. A flexible Olympus gastroscope was used to intubate the oropharynx. The esophagus was examined throughout its length and was found to be essentially normal. The stomach was entered where normal gastric rugal folds were seen. These distended nicely with insufflation of air. The scope was passed along the greater curvature of the stomach to the antrum where there appeared to be moderate gastritis. No erosions or ulcerations were noted. The pylorus was encountered and intubated. The duodenum was inspected and found to be normal. The scope was withdrawn to the stomach and a retroflex view was obtained of the lesser curvature, fundus, and cardia regions of the stomach and these appeared to be essentially normal. The scope was then redirected toward the gastric antrum where biopsies obtained to rule out the presence of Helicobacter pylori-type organisms and to confirm the clinical presence of gastritis. The scope was then removed from the patient who tolerated the procedure well and sent back to outpatient recovery in good condition.
== END 2024-03-27 09:14 | disposition home or self-care (01) ==
LOC: SDC 06:25
PROVIDERS: ATTEND Family Medicine
DX: K29.70 Gastritis, unspecified, without bleeding (principal); R63.4 Abnormal weight loss; K21.9 Gastro-esophageal reflux disease without esophagitis
CPT/HCPCS: J2250; J2704